=== PATIENT | male | born 1950 | race Caucasian/White ===

== ENCOUNTER → 2021-08-03 | Outpatient (CLI) | payer MEDICARE | LOC: CARD 15:11 | PROVIDERS: ATTEND Family Medicine | DX: I49.9 Cardiac arrhythmia, unspecified (principal) | CPT/HCPCS: 93005 ==

== ENCOUNTER → 2021-09-05 | Outpatient (CLI) | payer MEDICARE | LOC: CARD 12:30 | PROVIDERS: ATTEND Family Medicine | DX: R94.31 Abnormal electrocardiogram [ECG] [EKG] (principal); R00.2 Palpitations | CPT/HCPCS: 93225; 93226 ==

== ENCOUNTER → 2021-09-29 | Outpatient (CLI) | payer MEDICARE | LOC: CARD 13:00 | PROVIDERS: ATTEND Family Medicine | DX: I49.9 Cardiac arrhythmia, unspecified (principal); I51.7 Cardiomegaly; I35.1 Nonrheumatic aortic (valve) insufficiency | CPT/HCPCS: 93306 ==

== ENCOUNTER → 2021-12-14 | Outpatient (CLI) | payer MEDICARE ==
[~2021-12-14] VITALS: Ht 167 cm; Wt 68.0 kg
[~2021-12-14] MED LIST: CATHETER FLUSH 10 ML SYR IVP PRN
[2021-12-14 09:09] VITALS: BP 166/89
--- NOTE | 2021-12-15 11:23 | Cardiology Stress Test Report ---
Stress Test Report Date of Procedure/Referring: Date of Procedure: Dec 14, 2021 PCP Beatriz Figueroa DO Admitting Physician Admitting Physician: Attending Physician: Celestino Garrido MD Indications: HTN Baseline Heart Rate: 55 Baseline Blood Pressure: Blood Pressure Systolic: 166 Blood Pressure Diastolic: 89 Vital Signs Date Time Temp Pulse Resp B/P (MAP) Pulse Ox O2 Delivery O2 Flow Rate FiO2 12/14/21 09:09 57 166/89 (114) 95 Baseline Vital Signs Vital Signs Date Time Temp Pulse Resp B/P (MAP) Pulse Ox O2 Delivery O2 Flow Rate FiO2 12/14/21 09:09 57 166/89 (114) 95 Baseline EKG: Baseline EKG: NSR Summary: After explaining the procedure and details to the patient, he signed the consent and was brought to the stress nuclear laboratory. Patient exercised on standard Gato protocol, EKG, heart rate and blood pressure were monitored continuously, resting and stress doses of radio tracer were injected, imaging was acquired and reviewed in the short axis, horizontal long axis and vertical long axis views Patient was able to exercise for a total of 3.30 minutes on Gato protocol, METs 5.2 Maximum heart rate 151 Maximum blood pressure 208/78 Stress EKG, Minimal nondiagnostic changes Recovery EKG, Return to baseline TID: 0.95 SSS: 4 SDS: 4 EF: 57 Conclusion: 1. Fair exercise tolerance for a total of 3 minutes and 30 seconds on Gato protocol 5.2 METS achieving 100% of maximum expected heart rate 2. Baseline hypertension with hypertensive response to exercise, peak blood pressure 208/78 3. Nondiagnostic EKG changes with exercise with occasional PVCs resolved in recovery 4. Typical male pattern with no significant ischemia or infarction on SPECT images 5. Normal left ventricular size, ejection fraction 57% Copy Copies To 1: BEATRIZ FIGUEROA BASHAR J MD Dec 15, 2021 11:23
== END ==
LOC: CARD 08:00
PROVIDERS: ATTEND Internal Medicine Cardiovascular Disease
DX: I10 Essential (primary) hypertension (principal); I25.10 Atherosclerotic heart disease of native coronary artery without angina pectoris
CPT/HCPCS: 78452; 93017; A9502